=== PATIENT | female | born 1970 | race Two or more races ===

== ENCOUNTER 2022-06-02 14:32 | Emergency (ER) | payer MEDICAID, OTHER ==
[~2022-06-02] VITALS: Ht 152.4 cm; Wt 62.6 kg
[2022-06-02 15:00] VITALS: BP 153/87
== END 2022-06-02 18:11 | disposition home or self-care (01) ==
LOC: ER 14:32
DX: M79.604 Pain in right leg (principal); F17.210 Nicotine dependence, cigarettes, uncomplicated; Z98.51 Tubal ligation status
CPT/HCPCS: 93971